=== PATIENT | female | born 1975 | race Hispanic/Latino ===

== ENCOUNTER 2018-01-23 21:18 | Emergency (ER) | payer MEDICARE ==
[2018-01-23 21:52] LABS: BASOPHILS % (AUTO) 0.9 % (0.0-5.0); EOSINOPHILS % (AUTO) 5.2 % (0.0-8.0); HEMATOCRIT 37.2 % (36-48); LYMPHOCYTES % (AUTO) 34.4 % (21.0-51.0); MEAN CORPUSCULAR HEMOGLOBIN 22.7 pg (27.0-33.0); MEAN CORPUSCULAR HGB CONC 31.7 g/dL (32.0-36.0); MEAN CORPUSCULAR VOLUME 71.5 fL (79-99); MONOCYTES % (AUTO) 6.2 % (3.0-13.0); NEUTROPHILS % (AUTO) 53.3 % (40.0-77.0); NUCLEATED RED BLOOD CELLS 0.1 % (0.0-0.19); PLATELET COUNT (AUTO) 220 K/uL (130-400); RED BLOOD CELL COUNT(AUTO) 5.21 MIL/uL (4.00-5.50); WHITE BLOOD COUNT (AUTO) 10.1 K/uL (4.8-10.8)
[2018-01-23 22:09] LABS: CREATININE 0.8 mg/dL (0.5-1.5); POTASSIUM 3.2 mmol/L (3.5-5.1)
[2018-01-23 22:14] LABS: ALBUMIN 4.1 g/dL (3.5-5.0); BILIRUBIN,TOTAL 0.3 mg/dL (0.2-1.0); TOTAL PROTEIN, SERUM 8.6 g/dL (6.0-8.3)
[2018-01-23] MEDS ORDERED: CLONIDINE HCL 0.1 MG TABLET ONE (22:30)
[2018-01-23] MEDS ORDERED: ACETAMINOPHEN EXTRA STRENGTH 500 MG TABLET ONE (22:31)
[2018-01-23 22:40] LABS: APPEARANCE,URINE Clear (CLEAR); BILIRUBIN,URINE Negative (NEGATIVE); COLOR,URINE Yellow (YELLOW); GLUCOSE, URINE (UA) 500 mg/dL (NEGATIVE); KETONES,URINE Negative (NEGATIVE); LEUKOCYTE ESTERASE ,URINE Negative (NEGATIVE); NITRATE,URINE Negative (NEGATIVE); OCCULT BLOOD,URINE Negative (NEGATIVE); PH,URINE 6.5 (5.0-8.0); PROTEIN,URINE Negative (NEGATIVE); UROBILINOGEN,URINE 0.2 mg/dL (0.2-1.0)
[2018-01-23 22:51] LABS: BACTERIA,URINE Rare /HPF (None Seen); RBC,URINE 0-1 /HPF (0-1); WBC,URINE 0-1 /HPF (0-1)
== END 2018-01-24 00:04 | disposition home or self-care (01) ==
LOC: EDH 21:18
DX: R51 Headache (principal); I10 Essential (primary) hypertension; E11.9 Type 2 diabetes mellitus without complications; E78.5 Hyperlipidemia, unspecified; I25.10 Atherosclerotic heart disease of native coronary artery without angina pectoris; Z98.51 Tubal ligation status; Z95.1 Presence of aortocoronary bypass graft
CPT/HCPCS: 36415; 70450; 80053; 81001; 81025; 84484; 85025; 93005

== ENCOUNTER 2018-09-29 15:19 | Inpatient (IN) | payer MEDICARE ==
[~2018-09-29] VITALS: Ht 157.5 cm; Wt 67.6 kg
[2018-09-29 15:41] LABS: BASOPHILS % (AUTO) 0.8 % (0.0-5.0); EOSINOPHILS % (AUTO) 2.7 % (0.0-8.0); HEMATOCRIT 38.3 % (36-48); MEAN CORPUSCULAR HEMOGLOBIN 24.2 pg (27.0-33.0); MEAN CORPUSCULAR HGB CONC 32.8 g/dL (32.0-36.0); MEAN CORPUSCULAR VOLUME 73.6 fL (79-99); MONOCYTES % (AUTO) 5.2 % (3.0-13.0); NEUTROPHILS % (AUTO) 72.3 % (40.0-77.0); PLATELET COUNT (AUTO) 249 K/uL (130-400); RED BLOOD CELL COUNT(AUTO) 5.21 MIL/uL (4.00-5.50); RED CELL DISTRIBUTION WIDTH 17.4 % (11.0-15.5); WHITE BLOOD COUNT (AUTO) 11.9 K/uL (4.8-10.8)
[2018-09-29] MEDS ORDERED: NITROGLYCERIN 0.4 MG SL TAB SL ONE (15:50)
[2018-09-29 15:52] LABS: INR 0.88 (0.85-1.15); PARTIAL THROMBOPLASTIN TIME 24.9 SEC (26.3-35.5); PROTHROMBIN TIME 9.3 SEC (9.6-11.6)
[2018-09-29 15:52] LABS: APPEARANCE,URINE CLOUDY (CLEAR); BILIRUBIN,URINE NEGATIVE (NEGATIVE); COLOR,URINE YELLOW (YELLOW); GLUCOSE, URINE (UA) >=1000 mg/dL (NEGATIVE); KETONES,URINE 5 mg/dL (NEGATIVE); LEUKOCYTE ESTERASE ,URINE MODERATE (NEGATIVE); NITRATE,URINE NEGATIVE (NEGATIVE); OCCULT BLOOD,URINE TRACE-INTACT (NEGATIVE); PH,URINE 6.5 (5.0-8.0); PROTEIN,URINE NEGATIVE (NEGATIVE); UROBILINOGEN,URINE 0.2 mg/dL (0.2-1.0)
[2018-09-29 15:53] LABS: CREATININE 0.6 mg/dL (0.5-1.5); POTASSIUM 3.8 mmol/L (3.5-5.1)
[2018-09-29 15:54] LABS: HCG,QUAL RESULT NEGATIVE (NEGATIVE)
[2018-09-29 15:59] LABS: ALBUMIN 3.9 g/dL (3.5-5.0); BILIRUBIN,TOTAL 0.2 mg/dL (0.2-1.0); TOTAL PROTEIN, SERUM 8.3 g/dL (6.0-8.3)
[2018-09-29 16:00] LABS: AMPHET/METH SCREEN,URINE NEGATIVE (NEGATIVE); BARBITURATE SCREEN, URINE NEGATIVE (NEGATIVE); BENZODIAZEPINES SCREEN,URINE NEGATIVE (NEGATIVE); CANNABINOID SCREEN,URINE NEGATIVE (NEGATIVE); COCAINE SCREEN,URINE NEGATIVE (NEGATIVE); OPIATE SCREEN,URINE NEGATIVE (NEGATIVE); PHENCYCLIDINE SCREEN,URINE NEGATIVE (NEGATIVE)
[2018-09-29 16:01] LABS: BACTERIA,URINE Few /HPF (None Seen); TRICHOMONAS,URINE Few /LPF (None Seen)
[2018-09-29 16:02] LABS: SQUAMOUS EPITHELIAL CELL,UR Moderate /HPF (0-2)
[2018-09-29] MEDS ORDERED: ASPIRIN 81MG TAB.CHEW ONE (16:23)
[2018-09-29] MEDS ORDERED: HYDRALAZINE HCL 20 MG/ML VIAL IV PRN (17:15)
[2018-09-29] MEDS ORDERED: ACETAMINOPHEN 325 MG TAB PO PRN ×2 (17:15)
[2018-09-29] MEDS ORDERED: ONDANSETRON HCL 4 MG/2 ML VIAL IV PRN (17:15)
[2018-09-29] MEDS ORDERED: LACTULOSE 20 GM/30 ML UDCUP PO PRN (17:15)
[2018-09-29] MEDS: METOPROLOL TARTRATE 50 MG TAB PO SCH ×2 (17:15→21:00)
[2018-09-29] MEDS ORDERED: HYDRALAZINE HCL 20 MG/ML VIAL ONE ×2 (17:18→23:53)
[2018-09-29] MEDS ORDERED: METOPROLOL TARTRATE 25 MG TAB ONE (17:18)
[2018-09-29] MEDS ORDERED: LISINOPRIL 5 MG TABLET ONE (17:18)
[2018-09-29 17:23] LABS: HEMOGLOBIN A1C 10.5 % (4.0-6.0)
[2018-09-29] MEDS ORDERED: NITROGLYCERIN 50 MG/D5% WATER 250 BOT IV PRN (17:45)
[2018-09-29] MEDS: HYDROCHLOROTHIAZIDE 25 MG TABLET PO SCH (17:45)
[2018-09-29] MEDS ORDERED: NITROGLYCERIN 50 MG/D5% WATER 1 BOT ONE (18:21)
[2018-09-29] MEDS ORDERED: HYDROCHLOROTHIAZIDE 25 MG TABLET ONE (18:42)
[2018-09-29] MEDS ORDERED: CEFTRIAXONE SODIUM 1 GM ONE (19:35)
[2018-09-29] MEDS ORDERED: FAMOTIDINE/PF 20 MG/2 ML VIAL IV ONE (19:36)
[2018-09-29] MEDS ORDERED: CEFTRIAXONE SODIUM 1 GM IV SCH (21:00)
[2018-09-29] MEDS ORDERED: FAMOTIDINE/PF 20 MG/2 ML VIAL IV SCH (21:00)
[2018-09-29] MEDS ORDERED: ACETAMINOPHEN 325 MG TAB ONE (21:38)
--- NOTE | 2018-09-30 01:00 | NUR ---
PT ARRIVED FROM ER. REPORT RECEIVED FROM FELICIANO BETANCOURT. PT WAS ON A NITRO DRIP THAT WAS DC'D PRIOR TO TRANSFER. SHE WAS GIVEN HYDRALAZINE. BLOOD PRESSURE DECREASING. WILL BE MONITORING. PT IS ASYMPTOMATIC TO INCREASE PRESSURES. ON ADMISSION SYSTOLIC ABOVE 220'S. PT ABLE TO AMBULATE. NO DISTRESS NOTED.
[2018-09-30 01:01] VITALS: BP 148/91
[2018-09-30] MEDS ORDERED: CLONIDINE HCL 0.1 MG TABLET PO PRN (01:30)
[2018-09-30 03:09] VITALS: BP 118/70
[2018-09-30 06:12] LABS: CHOLESTEROL 202 mg/dL (<200); HDL CHOLESTEROL 145 mg/dL (35-85); LDL DIRECT 129 mg/dL (0-99); TRIGLYCERIDES 166 mg/dL (30-200)
--- NOTE | 2018-09-30 06:46 | NUR ---
PT BLOOD PRESSURE REMAINED STABLE. NO DISTRESS NOTED. LATEST BP 118/70
[2018-09-30 07:19] VITALS: BP 137/81
--- NOTE | 2018-09-30 07:30 | NUR ---
ASSESSMENT ENCOUNTERED PT A&OX3, CALM COOPERATIVE AND DOES NOT APPEAR TO BE IN ANY DISTRESS NOR ANY NEURO DEFICITS PRESENT. PT DENIES PAIN, SOB, NAUSEA, DIZZINESS OR LIGHTHEADEDNESS. PT IS AMBULATORY, GAIT STEADY AND STRONG WITH STAND BY ASSIST. CALL LIGHT WITHIN REACH.
--- NOTE | 2018-09-30 08:30 | NUR ---
DR GRIFFIN AT BEDSIDE, UPDATE GIVEN, ORDERS RECEIVED.
[2018-09-30] MEDS ORDERED: METO50 PO (08:40)
[2018-09-30] MEDS ORDERED: LISI1TAB32 PO (08:40)
[2018-09-30] MEDS: HYDROCHLOROTHIAZIDE 25 MG TABLET PO SCH (08:46)
[2018-09-30] MEDS: METOPROLOL TARTRATE 50 MG TAB PO SCH (08:46)
[2018-09-30] MEDS ORDERED: SULF1TAB42 PO (08:48)
[2018-09-30] MEDS ORDERED: ENOXAPARIN SODIUM 40 MG/0.4 ML SYRINGE SQ SCH (09:00)
[2018-09-30] MEDS ORDERED: LISINOPRIL 10 MG TABLET PO SCH (09:00)
--- NOTE | 2018-09-30 09:56 | NUR ---
DISCHARGE INSTRUCTIONS GIVEN, PIV REMOVED AND INTACT, DISCHARGED HOME TO FAMILY VEHICLE VIA WHEELCHAIR.
== END 2018-09-30 09:40 | disposition home or self-care (01) | DRG 305 ==
LOC: EDH 15:19 → EDHIP 17:01 → 2DH 09-30 00:46
PROVIDERS: ADMIT Internal Medicine; ATTEND Internal Medicine
DX: I16.1 Hypertensive emergency (principal); N39.0 Urinary tract infection, site not specified; E11.9 Type 2 diabetes mellitus without complications; E78.2 Mixed hyperlipidemia; I10 Essential (primary) hypertension; I25.10 Atherosclerotic heart disease of native coronary artery without angina pectoris; Z83.3 Family history of diabetes mellitus; Z82.49 Family history of ischemic heart disease and other diseases of the circulatory system
CPT/HCPCS: 36415; 71045; 76770; 80053; 80061; 80305; 81001; 81025; 83036; 84484; 85025; 85610; 85730; 87077; 87088; 87186; 93005; G0378; J0360; J0696; J3490

== ENCOUNTER 2020-10-22 16:23 | Inpatient (IN) | payer MEDICARE ==
[2020-10-22] VITALS (8 sets, daily range): BP systolic 152–200; BP diastolic 92–107
[~2020-10-22] VITALS: Ht 157.5 cm; Wt 68.5 kg
[~2020-10-22 16:23] MED LIST: LISI1TAB32 PO; METO50 PO; SULF1TAB42 PO
[2020-10-22] MEDS ORDERED: IOHEXOL-350 75 ML VIAL IV ONE (16:53)
[2020-10-22] MEDS ORDERED: NICARDIPINE 25MG INJ IV ONE (16:58)
[2020-10-22] MEDS ORDERED: NICARDIPINE IV SCH ×2 (17:00)
[2020-10-22] MEDS ORDERED: SODIUM CHLORIDE IV SCH ×2 (17:00)
[2020-10-22] MEDS ORDERED: 0.9%NACL 1000ML 1,000 ML IV ONE (17:00)
[2020-10-22 17:01] LABS: BASOPHILS % (AUTO) 0.7 % (0.0-5.0); EOSINOPHILS % (AUTO) 2.8 % (0.0-8.0); HEMATOCRIT 42.6 % (36-48); LYMPHOCYTES % (AUTO) 25.8 % (21.0-51.0); MEAN CORPUSCULAR HEMOGLOBIN 24.8 pg (27.0-33.0); MEAN CORPUSCULAR HGB CONC 32.4 g/dL (32.0-36.0); MEAN CORPUSCULAR VOLUME 76.6 fL (79-99); MONOCYTES % (AUTO) 5.8 % (3.0-13.0); NEUTROPHILS % (AUTO) 64.5 % (40.0-77.0); PLATELET COUNT (AUTO) 244 K/uL (130-400); RED BLOOD CELL COUNT(AUTO) 5.56 MIL/uL (4.00-5.50); RED CELL DISTRIBUTION WIDTH 15.3 % (11.0-15.5); WHITE BLOOD COUNT (AUTO) 8.9 K/uL (4.8-10.8)
[2020-10-22 17:10] LABS: CREATININE 0.7 mg/dL (0.5-1.5); POTASSIUM 3.6 mmol/L (3.5-5.1)
[2020-10-22 17:15] LABS: ALBUMIN 4.1 g/dL (3.5-5.0); BILIRUBIN,TOTAL 0.4 mg/dL (0.2-1.0); TOTAL PROTEIN, SERUM 8.3 g/dL (6.0-8.3)
[2020-10-22] MEDS ORDERED: INSULIN HUMULIN R 100 UNIT/ML 3ML SQ ONE (18:30)
[2020-10-22] MEDS ORDERED: ASPIRIN 81MG CHEW TAB PO ONE (18:30)
[2020-10-22 18:41] LABS: APPEARANCE,URINE Clear (CLEAR); BILIRUBIN,URINE Negative (NEGATIVE); COLOR,URINE Yellow (YELLOW); GLUCOSE, URINE (UA) >=1000 mg/dL (NEGATIVE); KETONES,URINE 15 mg/dL (NEGATIVE); LEUKOCYTE ESTERASE ,URINE Negative (NEGATIVE); NITRATE,URINE Negative (NEGATIVE); OCCULT BLOOD,URINE Negative (NEGATIVE); PROTEIN,URINE Trace mg/dL (NEGATIVE); UROBILINOGEN,URINE 0.2 mg/dL (0.2-1.0)
[2020-10-22 18:43] LABS: HCG,QUAL RESULT NEGATIVE (NEGATIVE)
[2020-10-22 18:55] LABS: BACTERIA,URINE None Seen /HPF (None Seen); WBC,URINE 0-1 /HPF (0-1)
[2020-10-22 18:56] LABS: MUCUS,URINE Few LPF (None Seen); SQUAMOUS EPITHELIAL CELL,UR Few /HPF (0-2); YEAST,URINE BUDDING Rare /HPF (None Seen)
[2020-10-22] MEDS ORDERED: 0.9%NACL 1000ML 1,000 ML IV SCH (19:00)
[2020-10-22] MEDS: ATORVASTATIN 40 MG TABLET PO SCH (21:00)
[2020-10-22] MEDS: INSULIN HUMULIN R 100 UNIT/ML 3ML SQ SCH (21:00)
[2020-10-22] MEDS: METOPROLOL TARTRATE 25 MG TAB PO SCH (21:00)
[2020-10-23] VITALS (19 sets, daily range): BP systolic 107–192; BP diastolic 64–107
[2020-10-23 06:55] LABS: CREATININE 0.5 mg/dL (0.5-1.5); MAGNESIUM 1.8 mg/dL (1.80-2.40); PHOSPHORUS 3.3 mg/dL (2.5-4.9); POTASSIUM 3.5 mmol/L (3.5-5.1)
[2020-10-23 07:37] LABS: HEMOGLOBIN A1C 10.3 % (4.0-6.0)
[2020-10-23] MEDS: INSULIN HUMULIN R 100 UNIT/ML 3ML SQ SCH ×4 (08:19→21:48)
[2020-10-23] MEDS: ASPIRIN 81 MG EC TAB PO SCH (08:20)
[2020-10-23] MEDS: ENOXAPARIN SODIUM 40 MG/0.4 ML SYRINGE SQ SCH (08:20)
[2020-10-23] MEDS: CLOPIDOGREL 75MG TAB PO SCH (08:20)
[2020-10-23] MEDS: FAMOTIDINE 20MG TAB PO SCH (08:20)
[2020-10-23] MEDS: METOPROLOL TARTRATE 25 MG TAB PO SCH ×2 (08:20→21:40)
[2020-10-23] MEDS ORDERED: LISINOPRIL 10 MG TABLET PO SCH (09:00)
[2020-10-23] MEDS ORDERED: AMLODIPINE 5 MG TAB ONE ×2 (10:53→18:58)
[2020-10-23] MEDS ORDERED: GADOTERATE MEGLUMINE 10 MMOL/20 ML VIAL IV ONE (10:54)
[2020-10-23] MEDS ORDERED: LISINOPRIL 20 MG TABLET PO SCH (16:00)
[2020-10-23] MEDS ORDERED: LISINOPRIL 40 MG TABLET PO SCH (16:32)
[2020-10-23] MEDS ORDERED: AMLODIPINE 5 MG TAB PO ONE (19:00)
[2020-10-23] MEDS ORDERED: ACETAMINOPHEN 325 MG TAB ONE (19:32)
[2020-10-23] MEDS ORDERED: ALPRAZOLAM 1 MG TAB ONE (19:33)
[2020-10-23] MEDS ORDERED: HYDROCODONE/ACETAMINOPHEN 5/325 MG TAB PO PRN (20:30)
[2020-10-23] MEDS ORDERED: ALPRAZOLAM 0.25 MG TABLET PO PRN (20:30)
[2020-10-23] MEDS ORDERED: INSULIN GLARGINE 100 UNITS/ML 10 ML VIAL SQ SCH (21:00)
[2020-10-23] MEDS: ACETAMINOPHEN 325 MG TAB PO PRN (21:28)
[2020-10-23] MEDS: ATORVASTATIN 40 MG TABLET PO SCH (21:40)
[2020-10-24] VITALS (16 sets, daily range): BP systolic 90–198; BP diastolic 50–112
[2020-10-24 03:47] LABS: MEAN CORPUSCULAR HEMOGLOBIN 24.6 pg (27.0-33.0); MEAN CORPUSCULAR HGB CONC 31.8 g/dL (32.0-36.0); MEAN CORPUSCULAR VOLUME 77.2 fL (79-99); RED BLOOD CELL COUNT(AUTO) 5.05 MIL/uL (4.00-5.50); RED CELL DISTRIBUTION WIDTH 15.6 % (11.0-15.5); WHITE BLOOD COUNT (AUTO) 9.2 K/uL (4.8-10.8)
[2020-10-24 03:54] LABS: CREATININE 0.8 mg/dL (0.5-1.5); POTASSIUM 3.6 mmol/L (3.5-5.1)
[2020-10-24] MEDS: INSULIN HUMULIN R 100 UNIT/ML 3ML SQ SCH ×4 (06:17→20:42)
[2020-10-24] MEDS: ASPIRIN 81 MG EC TAB PO SCH ×3 (08:45→10:06)
[2020-10-24] MEDS: CLOPIDOGREL 75MG TAB PO SCH ×3 (08:45→10:06)
[2020-10-24] MEDS: METOPROLOL TARTRATE 25 MG TAB PO SCH ×2 (08:45→09:00)
[2020-10-24] MEDS: FAMOTIDINE 20MG TAB PO SCH ×2 (08:46→09:00)
[2020-10-24] MEDS: ENOXAPARIN SODIUM 40 MG/0.4 ML SYRINGE SQ SCH ×2 (08:48→09:00)
[2020-10-24] MEDS ORDERED: LISINOPRIL 40 MG TABLET PO SCH (09:00)
[2020-10-24] MEDS ORDERED: LISINOPRIL 20 MG TABLET PO SCH (09:00)
[2020-10-24] MEDS: 0.9%NACL 1000ML 1,000 ML IV SCH ×2 (09:27→22:11)
[2020-10-24] MEDS ORDERED: 0.9%NACL 1000ML 1,000 ML IV SCH (09:30)
[2020-10-24] MEDS ORDERED: AMLODIPINE 5 MG TAB PO SCH (11:30)
[2020-10-24] MEDS: ACETAMINOPHEN 325 MG TAB PO PRN ×2 (11:55→22:32)
[2020-10-24] MEDS ORDERED: ENALAPRILAT DIHYDRATE 1.25MG/ML 1ML VIAL IV PRN (17:00)
[2020-10-24] MEDS: ATORVASTATIN 40 MG TABLET PO SCH (20:40)
[2020-10-24] MEDS: INSULIN GLARGINE 100 UNITS/ML 10 ML VIAL SQ SCH (20:42)
[2020-10-25] VITALS (9 sets, daily range): BP systolic 114–189; BP diastolic 62–99
[2020-10-25 03:42] LABS: HEMATOCRIT 36.9 % (36-48); MEAN CORPUSCULAR HEMOGLOBIN 24.9 pg (27.0-33.0); RED BLOOD CELL COUNT(AUTO) 4.73 MIL/uL (4.00-5.50); RED CELL DISTRIBUTION WIDTH 15.5 % (11.0-15.5); WHITE BLOOD COUNT (AUTO) 7.9 K/uL (4.8-10.8)
[2020-10-25 03:46] LABS: CREATININE 0.6 mg/dL (0.5-1.5); MAGNESIUM 1.8 mg/dL (1.80-2.40); POTASSIUM 3.8 mmol/L (3.5-5.1)
[2020-10-25] MEDS: INSULIN HUMULIN R 100 UNIT/ML 3ML SQ SCH ×4 (05:41→21:27)
[2020-10-25] MEDS: ASPIRIN 81 MG EC TAB PO SCH (09:29)
[2020-10-25] MEDS: CLOPIDOGREL 75MG TAB PO SCH (09:30)
[2020-10-25] MEDS: FAMOTIDINE 20MG TAB PO SCH (09:30)
[2020-10-25] MEDS: ENOXAPARIN SODIUM 40 MG/0.4 ML SYRINGE SQ SCH (09:31)
[2020-10-25] MEDS: ACETAMINOPHEN 325 MG TAB PO PRN (12:08)
[2020-10-25] MEDS: 0.9%NACL 1000ML 1,000 ML IV SCH (12:10)
[2020-10-25] MEDS ORDERED: POTASSIUM CHLORIDE 10% ELIXIR 20 MEQ/15 ML UDCUP PO PRN (14:00)
[2020-10-25] MEDS ORDERED: POTASSIUM CHLORIDE 20MEQ/100ML 100 ML IV PRN (14:00)
[2020-10-25] MEDS ORDERED: KCL 20 MEQ ERTAB PO PRN (14:00)
[2020-10-25] MEDS ORDERED: MAGNESIUM 2GM PREMIX 50ML 50 ML IV PRN (14:00)
[2020-10-25] MEDS ORDERED: LIDOCAINE HCL-MPF 1% 2ML VIAL IV PRN (14:00)
[2020-10-25] MEDS: ATORVASTATIN 40 MG TABLET PO SCH (21:19)
[2020-10-25] MEDS: INSULIN GLARGINE 100 UNITS/ML 10 ML VIAL SQ SCH (21:26)
[2020-10-26 03:08] VITALS: BP 149/94
[2020-10-26] MEDS: INSULIN HUMULIN R 100 UNIT/ML 3ML SQ SCH ×4 (06:45→20:50)
[2020-10-26 08:39] VITALS: BP 167/115
[2020-10-26] MEDS: FAMOTIDINE 20MG TAB PO SCH (08:56)
[2020-10-26] MEDS: ASPIRIN 81 MG EC TAB PO SCH (08:56)
[2020-10-26] MEDS: ENOXAPARIN SODIUM 40 MG/0.4 ML SYRINGE SQ SCH (08:57)
[2020-10-26] MEDS: CLOPIDOGREL 75MG TAB PO SCH (08:57)
[2020-10-26 11:00] VITALS: BP 181/110
[2020-10-26 16:00] VITALS: BP 165/97
[2020-10-26 20:03] VITALS: BP 187/87
[2020-10-26] MEDS: ATORVASTATIN 40 MG TABLET PO SCH (20:46)
[2020-10-26] MEDS: INSULIN GLARGINE 100 UNITS/ML 10 ML VIAL SQ SCH (20:51)
[2020-10-27] MEDS ORDERED: 0.9%NACL 50ML 50 ML IV ONE (20:51)
== END 2020-10-26 21:30 | DRG 65 ==
LOC: EDH 16:23 → EDHIP 18:39 → 2DH 10-23 22:50 → 4CH 10-25 16:13
PROVIDERS: ADMIT Internal Medicine; ATTEND Internal Medicine
DX: I63.9 Cerebral infarction, unspecified (principal); I16.1 Hypertensive emergency; G81.94 Hemiplegia, unspecified affecting left nondominant side; E78.00 Pure hypercholesterolemia, unspecified; E78.5 Hyperlipidemia, unspecified; E83.42 Hypomagnesemia; E87.6 Hypokalemia; G51.0 Bell's palsy; Z20.822 Contact with and (suspected) exposure to COVID-19; H55.00 Unspecified nystagmus; I10 Essential (primary) hypertension; E11.9 Type 2 diabetes mellitus without complications; R29.702 NIHSS score 2; I25.10 Atherosclerotic heart disease of native coronary artery without angina pectoris; Z91.14 Patient's other noncompliance with medication regimen; Z91.19 Patient's noncompliance with other medical treatment and regimen; Z95.1 Presence of aortocoronary bypass graft; Z86.73 Personal history of transient ischemic attack (TIA), and cerebral infarction without residual deficits; Z82.3 Family history of stroke; Z83.3 Family history of diabetes mellitus; Z79.84 Long term (current) use of oral hypoglycemic drugs; Z82.49 Family history of ischemic heart disease and other diseases of the circulatory system
CPT/HCPCS: 36415; 70450; 70496; 70498; 70553; 80048; 80053; 80061; 81001; 81025; 82948; 83036; 83735; 84100; 84484; 85025; 85027; 87635; 92522; 92610; 93005; 97039; 99291; G0378; J1650; J1815; J3475; J3490; J7030; J7050; Q9967

== ENCOUNTER 2021-06-16 01:14 | Emergency (ER) | payer MEDICARE ==
[~2021-06-16] VITALS: Ht 157.5 cm; Wt 62.1 kg
[2021-06-16] MEDS ORDERED: ACETAMINOPHEN 325 MG TAB PO ONE (02:30)
[2021-06-16 02:38] VITALS: BP 154/92
== END 2021-06-16 02:39 | disposition home or self-care (01) ==
LOC: EDH 01:14
DX: S40.012A Contusion of left shoulder, initial encounter (principal); S50.02XA Contusion of left elbow, initial encounter; S60.052A Contusion of left little finger without damage to nail, initial encounter; E11.9 Type 2 diabetes mellitus without complications; E78.00 Pure hypercholesterolemia, unspecified; I10 Essential (primary) hypertension; I25.10 Atherosclerotic heart disease of native coronary artery without angina pectoris; Z86.73 Personal history of transient ischemic attack (TIA), and cerebral infarction without residual deficits; Z98.890 Other specified postprocedural states; W10.1XXA Fall (on)(from) sidewalk curb, initial encounter; Y93.89 Activity, other specified; Y92.89 Other specified places as the place of occurrence of the external cause; Y99.8 Other external cause status
CPT/HCPCS: 73030; 73070; 73120

== ENCOUNTER 2022-09-23 09:12 | Emergency (ER) | payer MEDICARE ==
[~2022-09-23] VITALS: Ht 157.5 cm; Wt 67.6 kg
[2022-09-23 09:17] VITALS: BP 189/100; PULSE 72; RESP 16; O2SAT 99
[2022-09-23 11:57] LABS: BASOPHILS # (AUTO) 0.04 K/uL (0.00-0.20); BASOPHILS % (AUTO) 0.5 % (0.0-5.0); EOSINOPHILS % (AUTO) 2.3 % (0.0-8.0); HEMATOCRIT 42.5 % (36-48); IMMATURE GRANULOCYTE ABSOLUTE 0.02 K/uL (0-1); LYMPHOCYTES # (AUTO) 2.6 K/uL (1.0-4.8); LYMPHOCYTES % (AUTO) 29.6 % (21.0-51.0); MEAN CORPUSCULAR HEMOGLOBIN 26.6 pg (27.0-33.0); MEAN CORPUSCULAR HGB CONC 33.6 g/dL (32.0-36.0); MEAN CORPUSCULAR VOLUME 79.1 fL (79-99); MONOCYTES # (AUTO) 0.8 K/uL (0.1-1.0); MONOCYTES % (AUTO) 8.9 % (3.0-13.0); NEUTROPHILS # (AUTO) 5.1 K/uL (1.8-7.7); NEUTROPHILS % (AUTO) 58.5 % (40.0-77.0); PLATELET COUNT (AUTO) 250 K/uL (130-400); RED BLOOD CELL COUNT(AUTO) 5.37 MIL/uL (4.00-5.50); RED CELL DISTRIBUTION WIDTH 14.5 % (11.0-15.5); WHITE BLOOD COUNT (AUTO) 8.7 K/uL (4.8-10.8)
[2022-09-23 12:06] LABS: INR 0.93 (0.85-1.15)
[2022-09-23 12:07] LABS: CREATININE 0.7 mg/dL (0.5-1.5); PARTIAL THROMBOPLASTIN TIME 23.8 SEC (26.3-35.5); POTASSIUM 4.4 mmol/L (3.5-5.1)
[2022-09-23 12:12] LABS: ALBUMIN 3.8 g/dL (3.5-5.0); BILIRUBIN,TOTAL 0.4 mg/dL (0.2-1.0)
== END 2022-09-23 12:52 | disposition home or self-care (01) ==
LOC: EDH 09:12
DX: S76.912A Strain of unspecified muscles, fascia and tendons at thigh level, left thigh, initial encounter (principal); I25.10 Atherosclerotic heart disease of native coronary artery without angina pectoris; I10 Essential (primary) hypertension; E78.00 Pure hypercholesterolemia, unspecified; E11.9 Type 2 diabetes mellitus without complications; Z86.73 Personal history of transient ischemic attack (TIA), and cerebral infarction without residual deficits; Z95.1 Presence of aortocoronary bypass graft; X58.XXXA Exposure to other specified factors, initial encounter; Y93.89 Activity, other specified; Y92.89 Other specified places as the place of occurrence of the external cause; Y99.8 Other external cause status
CPT/HCPCS: 36415; 80053; 85025; 85610; 85730; 93971

== ENCOUNTER 2024-04-11 17:18 | Emergency (ER) | payer MEDICARE ==
[~2024-04-11] VITALS: Ht 157.5 cm; Wt 66.7 kg
[~2024-04-11 17:18] MED LIST changes: +AEC81 PO; +AMLO5TAB4 PO; +ATOR40TA69 PO; +CLOP-31 PO; +LISI10TA24 PO; -LISI1TAB32 PO; -METO50 PO; +METO50TA9 PO; +NITR0.4T50 SL; -SULF1TAB42 PO
--- NOTE | 2024-04-11 17:29 | ERN ---
General Chief Complaint: Abdominal Pain Stated Complaint: ABD PAIN Time Seen by MD: 17:19 Time Seen by Midlevel: 17:19 Source: patient History of Present Illness Initial Comments 48-year-old female who presents to the emergency department due to abdominal pain onset yesterday. Patient reports the pain is to the left upper area but denies any nausea, vomiting, fever, dysuria, diarrhea or further associated symptoms. PMHx HTN, DM, Hypercholesterolemia Allergies: Coded Allergies: No Known Drug Allergies (Verified Allergy, 09/26/12) Home Meds Active Scripts Cephalexin (Cephalexin) 500 Mg Tablet, 1 TAB PO BID for 7 Days, #14 TAB 0 Refills Prov:CAPRICE PRESTON 04/11/24 Nitroglycerin (Nitroglycerin) 0.4 Mg Tab.subl, 0.4 MG SL q5min x 3 prn, #30 TAB.SL Prov:JULIANNA LEVIN MD 11/19/22 Metoprolol Succinate (Toprol Xl) 50 Mg Tab.er.24h, 50 MG PO DAILY, #30 TAB 2 Refills Prov:JULIANNA LEVIN MD 11/19/22 Lisinopril (Lisinopril) 10 Mg Tablet, 10 MG PO DAILY, #30 TAB 2 Refills Prov:JULIANNA LEVIN MD 11/19/22 Clopidogrel Bisulfate (Plavix) 75 Mg Tablet, 75 MG PO DAILY, #30 TAB 2 Refills Prov:JULIANNA LEVIN MD 11/19/22 Atorvastatin Calcium (LIPITOR) 40 Mg Tablet, 80 MG PO HS, #30 TAB 2 Refills Prov:JULIANNA LEVIN MD 11/19/22 Aspirin (ASPIRIN 81 MG ECTAB) 81 Mg Ectab, 81 MG PO DAILY, #30 TAB.EC 2 Refills Prov:JULIANNA LEVIN MD 11/19/22 Amlodipine Besylate (Norvasc 5Mg Tab) 5 Mg Tablet, 5 MG PO DAILY, #30 TAB 2 Refills Prov:JULIANNA LEVIN MD 11/19/22 Past Medical History Past Medical History: CAD, CVA, Diabetes-Type II, High Cholesterol, Heart Disease, Hypertension, Stroke Past Surgical History: CABG Surgical History Other: TUBAL LIGATION SX, ROS Dictation Constitutional: Negative for fever,chills, and weight loss Eyes: Negative for injury, pain,redness, and discharge ENT: Negative for injury,pain or swelling Cardiovascular: Negative for chest pain, palpitations, and edema Respiratory: Negative for shortness of breath, cough, and wheezing, Abdomen/GI: Positive for abdominal pain Negative for nausea, vomiting, diarrhea, and constipation Back: Negative for injury and pain : Negative for painful urination, bleeding or discharge MS/Extremity: Negative for injury and deformity Skin: Negative for rash, and discoloration Neuro: Negative for headache, weakness, numbness, tingling, and seizure Psych: Negative for suicide ideation, homicidal ideation, and hallucinations Physical Exam Physical Exam Dictation General: awake, alert, no acute distress Head/Face: Normocephalic, atraumatic Eyes: PERRL, EOMI, normal conjuctiva ENT: oral cavity clear, oral mucosa moist Neck: Supple, normal range of motion Cardiovascular: RRR, normal S1/S2 Respiratory: CTAB, no respiratory distress, no rales or wheezes Abdomen: Soft, non-tender, non-distended, normal bowel sounds, no guarding or rebound. Skin: Warm, dry, normal turgor, no rash MS/Extremity: Pulses equal, no cyanosis, neurovascular intact, FROM Neuro: COAx4, GCS 15, strength 5/5, CN 2-12 intact, normal cerebellar exam, normal gait, Psych: Normal behavior, mood, and affect normal Results Laboratory and Microbiology Lab and Micro Result Laboratory Tests Test 04/11/24 17:42 04/11/24 20:31 White Blood Count 8.7 K/uL (4.8-10.8) Red Blood Count 4.71 MIL/uL (4.00-5.50) Hemoglobin 13.2 g/dL (12.0-16.0) Hematocrit 39.4 % (36-48) Mean Corpuscular Volume 83.7 fL (79-99) Mean Corpuscular Hemoglobin 28.0 pg (27.0-33.0) Mean Corpuscular Hemoglobin Concent 33.5 g/dL (32.0-36.0) Red Cell Distribution Width 13.8 % (11.0-15.5) Platelet Count 236 K/uL (130-400) Mean Platelet Volume 11.2 fL (7.5-10.5) H Immature Granulocyte % (Auto) 0.2 % (0-1) Neutrophils (%) (Auto) 58.7 % (40.0-77.0) Lymphocytes (%) (Auto) 30.1 % (21.0-51.0) Monocytes (%) (Auto) 6.8 % (3.0-13.0) Eosinophils (%) (Auto) 3.5 % (0.0-8.0) Basophils (%) (Auto) 0.7 % (0.0-5.0) Neutrophils # (Auto) 5.1 K/uL (1.8-7.7) Lymphocytes # (Auto) 2.6 K/uL (1.0-4.8) Monocytes # (Auto) 0.6 K/uL (0.1-1.0) Eosinophils # (Auto) 0.30 K/uL (0.00-0.70) Basophils # (Auto) 0.06 K/uL (0.00-0.20) Absolute Immature Granulocyte (auto 0.02 K/uL (0-1) Nucleated Red Blood Cells 0.0 % (0.0-0.19) Sodium Level 137 mmol/L (136-145) Potassium Level 4.1 mmol/L (3.5-5.1) Chloride Level 98 mmol/L (101-111) L Carbon Dioxide Level 31 mmol/L (21-32) Blood Urea Nitrogen 8 mg/dL (7-18) Creatinine 0.6 mg/dL (0.5-1.0) Glomerular Filtration Rate Calc 112 mL/min (>90) Random Glucose 299 mg/dL (70-105) H Total Calcium 8.7 mg/dL (8.5-10.1) Total Bilirubin 0.3 mg/dL (0.2-1.0) Direct Bilirubin 0.1 mg/dL (0.0-0.3) Aspartate Amino Transf (AST/SGOT) 17 U/L (10-37) Alanine Aminotransferase (ALT/SGPT) 27 U/L (12-78) Alkaline Phosphatase 101 U/L (50-136) Troponin I High Sensitivity 7 ng/L (4-50) Total Protein 7.6 g/dL (6.0-8.3) Albumin 3.8 g/dL (3.5-5.0) Lipase 41 U/L (16-77) Urine Color LIGHT-YELLOW (YELLOW) Urine Appearance CLEAR (CLEAR) Urine pH 7.0 (5.0-8.0) Urine Specific [place] 1.029 (1.001-1.031) Urine Protein NEGATIVE mg/dL (NEGATIVE) Urine Glucose (UA) >=1000 mg/dL (NEGATIVE) H Urine Ketones 5 mg/dL (NEGATIVE) H Urine Occult Blood NEGATIVE (NEGATIVE) Urine Nitrate NEGATIVE (NEGATIVE) Urine Bilirubin NEGATIVE mg/dL (NEGATIVE) Urine Urobilinogen 0.2 mg/dL (0.2-1.0) Urine Leukocyte Esterase 250 Jaya/uL (NEGATIVE) H Urine RBC 11-25 /HPF (0-1) H Urine WBC 11-25 /HPF (0-1) H Urine Squamous Epithelial Cells FEW /HPF (0-2) Urine Bacteria RARE /HPF (None Seen) Urine Other Casts 2 /LPF (None Seen) Urine HCG, Qualitative NEGATIVE (NEGATIVE) Labs Reviewed?: Yes MDM MDM: Differential diagnosis: UTI, pancreatitis, choledocholithiasis Rationale: 48-year-old female who presents to the emergency department due to abdominal pain onset yesterday. Patient reports the pain is to the left upper area but denies any nausea, vomiting, fever, dysuria, diarrhea or further associated symptoms. PMHx HTN, DM, Hypercholesterolemia Per physical examination patient is in no acute distress, nonlabored breathing, abdomen is soft nontender. GI cocktail administered in the ED. Labs obtained are nonspecific, no elevated WBCs, hepatic function within normal limits, lipase 41, urine hCG negative. UA indicates urinary tract infection with positive leukocyte esterase and WBCs, Rocephin administered in the ED. patient was educated on findings and diagnosis. Advised to follow up with PCP. Return to the emergency department if any worsening symptoms. Patient verbalized understanding. Patient stable for discharge. There are no social concerns with this patient. I independently interpreted the test that were performed, results were reviewed by me and considered findings on radiology if ordered. Medical management and examination interpretation discussions were had by me with other qualified healthcare professionals as indicated for the patient's care. ED Course Orders Procedure Category Date Status Time Cbc With Differential LAB 04/11/24 Complete 17:19 Basic Metabolic Panel LAB 04/11/24 Complete 17:19 Lipase LAB 04/11/24 Complete 17:19 Hepatic Function Panel LAB 04/11/24 Complete 17:19 ,Urine Test LAB 04/11/24 Complete 17:19 Troponin I High LAB 04/11/24 Complete Sensitivity 17:29 12 Lead Ekg Tracing- EKG 04/11/24 Resulted Technical 17:29 Urinalysis Profile LAB 04/11/24 Complete 17:19 Pantoprazole 40mg Tab PHA 04/11/24 Complete (Protonix 40mg Tab 21:00 Mag/Alum/Simeth 30ml PHA 04/11/24 Complete (Maalox Plus 30ml) 21:00 Lidocaine Hcl 2% PHA 04/11/24 Complete Viscous (Lidocaine Hcl 21:00 Culture Urine HOA 04/11/24 Complete 20:41 Ceftriaxone 1g Vial PHA 04/11/24 Complete (Rocephine 1g Inj) 21:00 Current Medications Medications (Trade) Dose Ordered Sig/Elliott Route PRN Reason Start Time Stop Time Status Last Admin Dose Admin Al Hydroxide/Mg Hydroxide (MAALox PLUS 30ML) 30 ml ONCE ONCE PO 04/11/24 21:00 04/11/24 21:01 DC 04/11/24 21:29 Ceftriaxone Sodium (ROCEphine 1G INJ) 1 gm ONCE ONCE IM 04/11/24 21:00 04/11/24 21:23 DC 04/11/24 21:31 Lidocaine HCl (Lidocaine HCl 2% Viscous) 10 ml ONCE ONCE PO 04/11/24 21:00 04/11/24 21:01 DC 04/11/24 21:29 Pantoprazole Sodium (PROTonix 40MG TAB) 40 mg ONCE ONCE PO 04/11/24 21:00 04/11/24 21:01 DC 04/11/24 21:29 Vital Signs Date Time Temp Pulse Resp B/P (MAP) Pulse Ox O2 Delivery O2 Flow Rate FiO2 04/11/24 21:32 98.6 70 20 128/80 100 Room Air* 0 21 04/11/24 20:23 98.6 66 20 124/88 100 Room Air* 0 21 04/11/24 17:23 98.2 67 16 166/93 100 Room Air DX & DISP Disposition: Discharge Departure Impression: Primary Impression: Urinary tract infection Condition: Stable Scripts Cephalexin (Cephalexin) 500 Mg Tablet 1 TAB PO BID for 7 Days, #14 TAB 0 Refills Prov: CAPRICE PRESTON 04/11/24 Additional Instructions: Discharge home. Rest. Follow up with primary care in 24 hours. Return to the ER for any acute changes or worsening symptoms. If any medications were prescribed take as directed. Okay to continue home medications unless otherwise discussed during your visit in the emergency room today. Patient was also advised to follow-up with primary care physician in 1 to 2 days for continued monitoring. Referrals: SOLOMON TEJEDA (PCP) I performed the substantive portion of the visit. I have reviewed and personally made and approve the management plan that is documented in the notes by myself or the MAYITO. I acknowledge full responsibility for the patient's management plan. CAPRICE PRESTON Apr 11, 2024 17:29
--- NOTE | 2024-04-11 17:53 | EKG ---
[facility] Test Date: 2024-04-11 Test Time: 17:46:18 Pat Name: COLE MIRAMONTES Department: [facility] [address] Room: Gender: F Training Intern: [id number] : 1975 Requested By: CAPRICE PRESTON Order Number: [id number] Reading MD: Norbert Mccormack Measurements Intervals [place] Rate: 67 P: 47 WA: 197 QRS: 49 QRSD: 75 T: 36 QT: 420 QTc: 443 Interpretive Statements Sinus rhythm Consider anteroseptal infarct Compared to ECG 11/17/2022 20:33:06 No significant changes Electronically Signed On 04-12-2024 12:50:03 [employer] by Norbert Mccormack Please click the below link to view image of tracing.
[2024-04-11 18:05] LABS: BASOPHILS # (AUTO) 0.06 K/uL (0.00-0.20); BASOPHILS % (AUTO) 0.7 % (0.0-5.0); EOSINOPHILS % (AUTO) 3.5 % (0.0-8.0); HEMATOCRIT 39.4 % (36-48); IMMATURE GRANULOCYTE ABSOLUTE 0.02 K/uL (0-1); LYMPHOCYTES # (AUTO) 2.6 K/uL (1.0-4.8); LYMPHOCYTES % (AUTO) 30.1 % (21.0-51.0); MEAN CORPUSCULAR HGB CONC 33.5 g/dL (32.0-36.0); MEAN CORPUSCULAR VOLUME 83.7 fL (79-99); MONOCYTES # (AUTO) 0.6 K/uL (0.1-1.0); MONOCYTES % (AUTO) 6.8 % (3.0-13.0); NEUTROPHILS # (AUTO) 5.1 K/uL (1.8-7.7); NEUTROPHILS % (AUTO) 58.7 % (40.0-77.0); PLATELET COUNT (AUTO) 236 K/uL (130-400); RED BLOOD CELL COUNT(AUTO) 4.71 MIL/uL (4.00-5.50); RED CELL DISTRIBUTION WIDTH 13.8 % (11.0-15.5); WHITE BLOOD COUNT (AUTO) 8.7 K/uL (4.8-10.8)
[2024-04-11 18:17] LABS: CREATININE 0.6 mg/dL (0.5-1.0); POTASSIUM 4.1 mmol/L (3.5-5.1)
[2024-04-11 18:21] LABS: ALBUMIN 3.8 g/dL (3.5-5.0); BILIRUBIN,DIRECT 0.1 mg/dL (0.0-0.3); BILIRUBIN,TOTAL 0.3 mg/dL (0.2-1.0); TOTAL PROTEIN, SERUM 7.6 g/dL (6.0-8.3)
[2024-04-11 20:41] LABS: ADD UA MICROSCOPIC YES; APPEARANCE,URINE CLEAR (CLEAR); BILIRUBIN,URINE NEGATIVE (NEGATIVE); COLOR,URINE LIGHT-YELLOW (YELLOW); GLUCOSE, URINE (UA) >=1000 mg/dL (NEGATIVE); KETONES,URINE 5 mg/dL (NEGATIVE); LEUKOCYTE ESTERASE ,URINE 250 Leu/uL (NEGATIVE); NITRATE,URINE NEGATIVE (NEGATIVE); OCCULT BLOOD,URINE NEGATIVE (NEGATIVE); PROTEIN,URINE NEGATIVE (NEGATIVE); UROBILINOGEN,URINE 0.2 mg/dL (0.2-1.0)
[2024-04-11 20:42] LABS: HCG,QUALITATIVE URINE NEGATIVE (NEGATIVE)
[2024-04-11 20:44] LABS: BACTERIA,URINE RARE /HPF (None Seen); MUCUS,URINE RARE LPF (None Seen); OTHER CASTS, URINE 2 /LPF (None Seen); SQUAMOUS EPITHELIAL CELL,UR FEW /HPF (0-2)
[2024-04-11] MEDS ORDERED: CEPH500T PO (21:22)
[2024-04-11] MEDS: LIDOCAINE HCL 2% VISCOUS 15 ML UDCUP PO ONE (21:29)
[2024-04-11] MEDS: MAG/ALUM/SIMETH 30 ML UDCUP PO ONE (21:29)
[2024-04-11] MEDS: PANTOPrazole 40 MG TAB DR PO ONE (21:29)
[2024-04-11] MEDS: cefTRIAXone 1G VIAL IM ONE (21:31)
[2024-04-11 21:32] VITALS: BP 128/80; PULSE 70; RESP 20; TEMP 98.6; O2SAT 100
== END 2024-04-11 21:37 | disposition home or self-care (01) ==
LOC: EDH 17:18
DX: N39.0 Urinary tract infection, site not specified (principal); I25.10 Atherosclerotic heart disease of native coronary artery without angina pectoris; E11.9 Type 2 diabetes mellitus without complications; E78.00 Pure hypercholesterolemia, unspecified; I10 Essential (primary) hypertension; Z79.02 Long term (current) use of antithrombotics/antiplatelets; Z79.82 Long term (current) use of aspirin; Z79.899 Other long term (current) drug therapy; Z86.73 Personal history of transient ischemic attack (TIA), and cerebral infarction without residual deficits; Z95.1 Presence of aortocoronary bypass graft; Z98.51 Tubal ligation status
CPT/HCPCS: 99284; 80076; 84484; 80048; 83690; 85025; 87086; 81001; 81025; 36415; 96372; 93005; J0696

== ENCOUNTER → 2024-05-01 | Outpatient (CLI) | payer MEDICARE ==
[~2024-05-01] MED LIST changes: +CEPH500T PO
[2024-05-01 16:20] LABS: BASOPHILS # (AUTO) 0.06 K/uL (0.00-0.20); BASOPHILS % (AUTO) 0.6 % (0.0-5.0); EOSINOPHILS # (AUTO) 0.29 K/uL (0.00-0.70); EOSINOPHILS % (AUTO) 2.8 % (0.0-8.0); HEMATOCRIT 40.3 % (36-48); IMMATURE GRANULOCYTE ABSOLUTE 0.02 K/uL (0-1); LYMPHOCYTES # (AUTO) 3.1 K/uL (1.0-4.8); MEAN CORPUSCULAR HEMOGLOBIN 27.9 pg (27.0-33.0); MEAN CORPUSCULAR VOLUME 82.1 fL (79-99); MONOCYTES # (AUTO) 0.6 K/uL (0.1-1.0); MONOCYTES % (AUTO) 6.1 % (3.0-13.0); NEUTROPHILS # (AUTO) 6.2 K/uL (1.8-7.7); NEUTROPHILS % (AUTO) 60.3 % (40.0-77.0); PLATELET COUNT (AUTO) 232 K/uL (130-400); RED BLOOD CELL COUNT(AUTO) 4.91 MIL/uL (4.00-5.50); RED CELL DISTRIBUTION WIDTH 13.9 % (11.0-15.5); WHITE BLOOD COUNT (AUTO) 10.4 K/uL (4.8-10.8)
[2024-05-01 17:07] LABS: BILIRUBIN,TOTAL 0.4 mg/dL (0.2-1.0); CREATININE 0.5 mg/dL (0.5-1.0); POTASSIUM 3.9 mmol/L (3.5-5.1); TOTAL PROTEIN, SERUM 7.9 g/dL (6.0-8.3)
== END | disposition home or self-care (01) ==
LOC: LAB 14:05
PROVIDERS: ATTEND Internal Medicine Cardiovascular Disease
DX: E11.59 Type 2 diabetes mellitus with other circulatory complications (principal); I10 Essential (primary) hypertension; E78.5 Hyperlipidemia, unspecified
CPT/HCPCS: 36415; 80053; 80061; 85025

== ENCOUNTER → 2024-06-05 | Outpatient (CLI) | payer MEDICARE ==
[2024-06-05 12:13] LABS: BASOPHILS # (AUTO) 0.06 K/uL (0.00-0.20); BASOPHILS % (AUTO) 0.6 % (0.0-5.0); EOSINOPHILS # (AUTO) 0.57 K/uL (0.00-0.70); EOSINOPHILS % (AUTO) 5.4 % (0.0-8.0); HEMATOCRIT 39.1 % (36-48); IMMATURE GRANULOCYTE ABSOLUTE 0.02 K/uL (0-1); LYMPHOCYTES # (AUTO) 3.1 K/uL (1.0-4.8); LYMPHOCYTES % (AUTO) 29.7 % (21.0-51.0); MEAN CORPUSCULAR HEMOGLOBIN 27.5 pg (27.0-33.0); MEAN CORPUSCULAR VOLUME 83.4 fL (79-99); MONOCYTES # (AUTO) 0.5 K/uL (0.1-1.0); MONOCYTES % (AUTO) 5.1 % (3.0-13.0); NEUTROPHILS # (AUTO) 6.2 K/uL (1.8-7.7); PLATELET COUNT (AUTO) 246 K/uL (130-400); RED BLOOD CELL COUNT(AUTO) 4.69 MIL/uL (4.00-5.50); RED CELL DISTRIBUTION WIDTH 14.2 % (11.0-15.5); WHITE BLOOD COUNT (AUTO) 10.5 K/uL (4.8-10.8)
[2024-06-05 12:37] LABS: ALBUMIN 3.8 g/dL (3.5-5.0); BILIRUBIN,TOTAL 0.5 mg/dL (0.2-1.0); CREATININE 0.6 mg/dL (0.5-1.0); POTASSIUM 3.9 mmol/L (3.5-5.1); TOTAL PROTEIN, SERUM 7.6 g/dL (6.0-8.3)
== END | disposition home or self-care (01) ==
LOC: LAB 08:35
PROVIDERS: ATTEND Internal Medicine Cardiovascular Disease
DX: I10 Essential (primary) hypertension (principal); E11.59 Type 2 diabetes mellitus with other circulatory complications; E78.5 Hyperlipidemia, unspecified
CPT/HCPCS: 36415; 80053; 80061; 85025